=== PATIENT | male | born 1985 | race Caucasian/White ===

== ENCOUNTER → 2023-06-22 12:01 | Outpatient (REF) | payer OTHER, SELFPAY | LOC: PAVMRI 12:01 | PROVIDERS: ATTENDING PHYSICIAN Nurse Practitioner Family; FAMILY PHYSICIAN Internal Medicine | DX: M54.50 Low back pain, unspecified (principal) | CPT/HCPCS: 72148 ==

== ENCOUNTER 2024-12-11 04:38 | Emergency (ER) | payer OTHER, SELFPAY ==
[2024-12-11 04:40] VITALS: BP 158/118
--- NOTE | 2024-12-11 07:54 | ED.GENMED ---
History of Present Illness
<Daisha Garner MD, Resident - Last Filed: 12/11/24 10:15>
General
Chief Complaint: Withdrawal Symptoms
Time Seen by Provider: 12/11/24 07:54
History of Present Illness
History of Present Illness:
Patient is a 39-year-old male who presents to the emergency department with profuse sweating, stomach being in knots, nausea, and abdominal pain after running out of his opioid medications the morning prior to his presentation. He is established at
[facility] [place] under the care of Dr. Roque Posadas. The patient was recently established at that practice due to high opioid utilization and dependence. Dr. Posadas has the patient on a pain contract with a downward taper
care plan. The patient takes 30 mg of morphine and 15 mg of Oxycodone once a day and his last prescription was filled on 11/16/2024. the patient's opioid addiction began around the age of 25 when he initially hurt his back. Unfortunately, he has
been unable to kick his dependence of opioids and continues to make strides to overcome his dependence. patient states that he is to be seen at the practice this Tuesday and hopes to get help managing his symptoms until Tuesday. His stomach is in
knots and he has nausea with abdominal pain. He does not have a generalized bodyaches. He has profuse sweating throughout his body. He does not have any restlessness, goosebumps, bone aches, runny nose, or tremor. Patient denies any shortness of
breath or chest tightness. Patient is nontoxic.
Past History
<Daisha Garner MD, Resident - Last Filed: 12/11/24 10:15>
Past History
ED Past Medical History: Other (Chronic back issues) and Other ( Opioid dependence disorder)
ED Past Surgical History: Other (Bowel surgery)
Social History
Tobacco: Smoker
Alcohol: Daily
Drug: Marijuana
Personal:
Living: with family
Employment: Employed ([employer])
Review of Systems
<Daisha Garner MD, Resident - Last Filed: 12/11/24 10:15>
Review of Systems
Constitutional: Reports other ( generalized sweats)
EENT: Reports no symptoms
Respiratory: Reports no symptoms
Cardiac: Reports no symptoms
ABD/GI: Reports abdominal pain and nausea
: Reports no symptoms
Musculoskeletal: Reports no symptoms
Skin: Reports no symptoms
Neurological: Reports no symptoms
Endocrine: Reports no symptoms
Hematologic/Lymphatic: Reports no symptoms
Psychiatric: Reports no symptoms
Phy Exam
<Daisha Garner MD, Resident - Last Filed: 12/11/24 10:15>
General Physical Exam
General Presentation: well appearing
General age: appears stated age
General Skin: warm and dry
General Habitus: normal
General Mental: anxious
General Hydration: appears well hydrated
Cardiovascular Exam
Cardiovascular Exam: regular rate/rhythm, no edema, no gallop, no JVD and no murmur
Pulmonary Exam
Pulmonary Exam: lungs clear, no respiratory distress, no rales, chest non tender, no crackles, no rhonchi, no stridor, no wheezing and no cough
Musculoskeletal Exam
Musculoskeletal Exam: full ROM
Skin Exam
Skin Exam: normal color, warm/dry, no rash and no petechia
Psychiatric Exam
Psychiatric Exam: normal mood/affect and anxious
Scores
<Daisha Garner MD, Resident - Last Filed: 12/11/24 10:15>
COW Clinical Opiate Withdrawal Scale
Resting Pulse Rate: 101-120
Sweating-over past 30min not from room temp or activity: Beads of sweat on brow or face
Restlessness-observation during assessment: Able to sit still
Pupil Size: Pupils pinned or normal size for room light
Bone or Joint Aches: Not present
Runny Nose or Tearing-not accounted for by cold/allergies: Not present
GI Upset-over last 30min: Nausea or loose stool
Tremor-observation of outstretched hands: No tremor
Yawning-observation during assessment: No yawning
Anxiety or Irritability: Patient reports increasing irritability or anxiousness
Gooseflesh Skin: Skin is smooth
Score: 8
Withdrawal Severity: Mild Withdrawal, consider starting Suboxone
<Art Thao DO - Last Filed: 12/11/24 13:12>
COW Clinical Opiate Withdrawal Scale
Score: 8
Withdrawal Severity: Mild Withdrawal, consider starting Suboxone
Course
<Daisha Garner MD, Resident - Last Filed: 12/11/24 10:15>
Orders/Labs/Results
Orders:
Orders
12/11/24 08:23
Ondansetron HCl [Zofran] 4 mg PO NOW ONE
12/11/24 08:47
Nicotine [Nicoderm Transdermal] 14 mg TRANSDERM NOW ONE
12/11/24 09:26
Dicyclomine [Bentyl] 20 mg PO NOW ONE
Vital Signs
Initial and Last Documented VS:
Initial Vital Signs
Temp Pulse Resp BP Pulse Ox
97.8 F 108 22 158/118 97
12/11/24 04:40 12/11/24 04:40 12/11/24 04:40 12/11/24 04:40 12/11/24 04:40
Last Documented Vital Signs
Temp Pulse Resp BP Pulse Ox
97.8 F 108 22 158/118 97
12/11/24 04:40 12/11/24 04:40 12/11/24 04:40 12/11/24 04:40 12/11/24 08:43
<Art Thao DO - Last Filed: 12/11/24 13:12>
Orders/Labs/Results
Orders:
Orders
12/11/24 08:23
Ondansetron HCl [Zofran] 4 mg PO NOW ONE
12/11/24 08:47
Nicotine [Nicoderm Transdermal] 14 mg TRANSDERM NOW ONE
12/11/24 09:26
Dicyclomine [Bentyl] 20 mg PO NOW ONE
Vital Signs
Initial and Last Documented VS:
Initial Vital Signs
Temp Pulse Resp BP Pulse Ox
97.8 F 108 22 158/118 97
12/11/24 04:40 12/11/24 04:40 12/11/24 04:40 12/11/24 04:40 12/11/24 04:40
Last Documented Vital Signs
Temp Pulse Resp BP Pulse Ox
97.8 F 108 22 158/118 97
12/11/24 04:40 12/11/24 04:40 12/11/24 04:40 12/11/24 04:40 12/11/24 08:43
<Daisha Garner MD, Resident - Last Filed: 12/11/24 10:15>
*Pulse Oximetry
SaO2: 97
Oxygen Mode of Delivery: Room air
Patient hypoxic: no
*Critical Care Note
Total Time (30-74mins, 75-104mins- exclusive of procedures): Not Applicable
<Daisha Garner MD, Resident - Last Filed: 12/11/24 10:15>
Update Note
Update Note:
Problem List:
Nausea
GI upset
sweats
Plan:
contact outpatient pain specialist
Zofran for antiemetic
Bentyl
Differential Diagnoses:
mild opioid withdrawal
Radiology: not applicable
EKG: not applicable
Updates:
Patient given Zofran and Bentyl
Spoke to Dr. Roque Hector at [facility] [place] via phone call. They will bring the patient in to be seen later today in hopes of managing the patient's mild opioid withdrawal. they discussed that the patient will
likely have his medications refilled on the as per the 30-day refill contract that he signed to establish with the practice. initially, he was scheduled to be seen on the of this month but they will bring him in later on today for
further evaluation and to discuss possible means to get better control of his opioid dependence.
Patient to be discharged from the emergency department with immediate follow-up with pain specialist later today.
Patient would like to be discharged from the emergency department. There are no barriers that would impede the patient from being safely discharged.
ED Attending Note
<Daisha Garner MD, Resident - Last Filed: 12/11/24 10:15>
-
Portions of this chart may have been created with voice recognition software.� Occasional wrong word or��sound alike� substitutions may have occurred due to the inherent limitations of voice recognition software.
<Art Thao DO - Last Filed: 12/11/24 13:12>
ED Attending Note
Patient seen and examined by attending physician: Yes
I performed a history and physical exam of patient and discussed management with resident, I reviewed resident's note and agree with documented findings and plan of care.: Yes
ED Attending Note:
I agree with Dr. Garner's note.
Patient presents with symptoms of withdrawal because he ran out of his pain medicine at home. Patient had increased the amount of pain medicine he was taking due to a worsening of his back pain. Patient denies any bowel or bladder dysfunction.
Denies any weakness numbness or tingling in the lower extremities.
He appears mildly anxious
He has mild tremors
He is mildly tachycardic
Patient presents with withdrawal symptoms. His pain management doctor will see him in the office today to determine if he will refill his prescriptions early. From our standpoint we will give him some nonopioid analgesia and symptom relief.
Discharge Plan
Departure
Patient Disposition: Home (Routine Discharge)
Date of Disposition: 12/11/24
Time of Disposition: 09:51
Patient with high blood pressure during this ER visit?: Yes
Discharge Problem:
Opioid dependence with withdrawal
Instructions: Nausea and Vomiting, Adult (DC), Drug Misuse and Addiction (DC)
Prescriptions:
No Action
methylprednisolone [Medrol (Cayetano)] 4 MG tablets,dose pack
4 tab PO . DIRECT Qty: 1 0RF
oxycodone-acetaminophen 5 MG/325 MG tablet
1 tab PO Q4HPRN PRN (Reason: pain) Qty: 12 0RF
doxycycline hyclate 100 MG capsule
100 mg PO BID Qty: 20 0RF
cefadroxil [Duricef] 500 MG capsule
500 mg PO BID Qty: 20 0RF
hydrocodone-acetaminophen [Vicodin] 1 EACH tablet
1 ea PO Q6HPRN PRN (Reason: pain) Qty: 12 0RF
sulfamethoxazole-trimethoprim 1 TABLET tablet
1 tab PO BID Qty: 14 0RF
prednisone 50 MG tablet
50 mg PO DAILY Qty: 4 0RF
tramadol 50 MG tablet
50 mg PO Q6HPRN PRN (Reason: pain) Qty: 12 0RF
prednisone 20 MG tablet
40 mg PO DAILY Qty: 8 0RF
Referrals:
UNKNOWN - PT DOES,NOT KNOW [Family Provider]
Activity Restrictions/Additional Instructions:
Spoke to Dr. Roque Hector at [facility] [place] where the patient is currently established for pain management. They are aware of the patient's current presentation and have stated that they will bring the patient in for
an appointment and evaluation due to opioid withdrawal. Patient will be discharged from the emergency department with appointment at pain management later today. [facility] we will reach out to the patient in order to arrange
appointment today.
Interventions
Interventions:
*Risk Screen - Suicide Last Done: 12/11/24 08:33
*General Assessment Last Done: 12/11/24 08:33
*Neglect/Abuse Screening Last Done: 12/11/24 08:33
*ED- Fall Risk Assessment Last Done: 12/11/24 08:33
*ED COVID-19 Vaccine History Last Done: 12/11/24 08:33
*Nursing Disposition Last Done: 12/11/24 10:06
ED- Neurological Assessment Last Done: 12/11/24 08:36
ED-Psychological Assessment Last Done: 12/11/24 08:36
Discharge Date and Time
Discharge Date/Time: 12/11/24 10:07
Print Language: ARMENIAN
[2024-12-11] MEDS: ZOFRAN 4 MG PO (08:32)
[2024-12-11 08:33] VITALS: BMI 23.5
[2024-12-11] MEDS: NICODERM TRANSDERMAL 14 MG TRANSDERM (09:01)
[2024-12-11] MEDS: BENTYL 20 MG PO (10:03)
== END 2024-12-11 10:07 | disposition home or self-care (01) ==
LOC: EMR 04:38
PROVIDERS: EMERGENCY PHYSICIAN Emergency Medicine
DX: F11.23 Opioid dependence with withdrawal (principal); M54.9 Dorsalgia, unspecified; G89.29 Other chronic pain; F17.200 Nicotine dependence, unspecified, uncomplicated; T40.2X6A Underdosing of other opioids, initial encounter; Z91.128 Patient's intentional underdosing of medication regimen for other reason
CPT/HCPCS: 99283

== ENCOUNTER 2024-12-11 18:12 | Emergency (ER) | payer OTHER, SELFPAY ==
[2024-12-11 18:14] VITALS: BP 85/58
[2024-12-11 20:42] VITALS: BP 108/74
[2024-12-11 20:43] VITALS: BMI 25.0
[2024-12-11] MEDS: BENTYL 20 MG PO (21:43)
[2024-12-11] MEDS: ZOFRAN ODT (ORALLY DISINTEGRATING) 4 MG PO (21:43)
--- NOTE | 2024-12-11 22:44 | ED.GENMED ---
History of Present Illness
General
Chief Complaint: Withdrawal Symptoms
Source: patient and family (parents)
Time Seen by Provider: 12/11/24 20:33
History of Present Illness
History of Present Illness:
Patient to ED with complaint of withdrawal symptoms. He is currently prescribed morphine and oxycodone. Pain management is attempting to wean him off of these meds. Patient admits to taking higher doses recently because of exacerbation of his
back pain. He has since run out of his pain medication. Next refill is on Tuesday. He was seen in ED this AM. Treated with bentyl and zofran and he reports feeling better with those meds. He was discharged from ED to pain management office.
There he was given rx for flexeril and clonidine 0.1mg. He return s here tonight stating those meds do not work. To ED accompanied by parents.
Past History
Past History
ED Past Medical History: Other (Chronic back issues) and Other ( Opioid dependence disorder)
ED Past Surgical History: Other (Bowel surgery)
Social History
Tobacco: Smoker
Alcohol: Daily
Drug: Marijuana
Personal:
Living: with family
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
Review of Systems
Review of Systems
Allergies reviewed?: Yes
All Other Systems: ROS reviewed and negative except as documented in HPI and ROS
Constitutional: Reports no symptoms
EENT: Reports no symptoms
Respiratory: Reports no symptoms
Cardiac: Reports no symptoms
ABD/GI: Reports nausea
: Reports no symptoms
Musculoskeletal: Reports no symptoms
Skin: Reports no symptoms
Neurological: Reports weakness
Psychiatric: Reports no symptoms
Phy Exam
General Physical Exam
General Presentation: moderate distress
General age: appears stated age
General Skin: warm and dry
General Habitus: normal
General Mental: alert
Pulmonary Exam
Pulmonary Exam: no respiratory distress
Gastrointestinal Exam
Gastrointestinal Exam: non tender and soft
Musculoskeletal Exam
Musculoskeletal Exam: full ROM and neuro vasc intact
Skin Exam
Skin Exam: normal color and diaphoresis
Psychiatric Exam
Psychiatric Exam: normal mood/affect
Course
Orders/Labs/Results
Orders:
Orders
12/11/24 21:30
Dicyclomine [Bentyl] 20 mg PO NOW STA
Ondansetron Orally Disint [Zofran Odt (Orally Disintegrating)] 4 mg PO NOW STA
Vital Signs
Initial and Last Documented VS:
Initial Vital Signs
Temp Pulse Resp BP Pulse Ox
98.0 F 71 18 85/58 98
12/11/24 18:14 12/11/24 18:14 12/11/24 18:14 12/11/24 18:14 12/11/24 18:14
Last Documented Vital Signs
Temp Pulse Resp BP Pulse Ox
98.0 F 71 18 108/74 98
12/11/24 18:14 12/11/24 18:14 12/11/24 18:14 12/11/24 20:42 12/11/24 20:45
*Pulse Oximetry
SaO2: 98
Oxygen Mode of Delivery: Room air
Patient hypoxic: no
*Critical Care Note
Total Time (30-74mins, 75-104mins- exclusive of procedures): Not Applicable
Update Note
Update Note:
Patient to ED for medication. He was seen in ED earlier today and given bentyl and zofran for opioid withdrawal symptoms. States that was helpful to him. He was seen by pain management after his ED visit today and prescribed flexeril and
clonidine. He does not feel that these meds are helping. Given another dose of bentyl and zofran in ED with significant improvement. Will discharge home with parnet, short rx for bentyl and zofran provided. He will follow upwith pain management.
Given instructions on s/s to return to ED and he is agreeable toplan.
ED Attending Note
-
Portions of this chart may have been created with voice recognition software.� Occasional wrong word or��sound alike� substitutions may have occurred due to the inherent limitations of voice recognition software.
Discharge Plan
Departure
Patient Disposition: Home (Routine Discharge)
Date of Disposition: 12/11/24
Time of Disposition: 22:40
Patient with high blood pressure during this ER visit?: No
Condition: Good
Covid-19: Not Applicable
Discharge Problem:
Opioid dependence with withdrawal
Instructions: Opioid use disorder - ED (DC)
Prescriptions:
New
dicyclomine 20 mg tablet
20 mg PO TID PRN (Reason: abdominal pain) Qty: 12 0RF
ondansetron 4 mg tablet,disintegrating
4 mg PO TID PRN (Reason: nausea and vomiting) 4 Days Qty: 12 0RF
No Action
methylprednisolone [Medrol (Cayetano)] 4 MG tablets,dose pack
4 tab PO . DIRECT Qty: 1 0RF
oxycodone-acetaminophen 5 MG/325 MG tablet
1 tab PO Q4HPRN PRN (Reason: pain) Qty: 12 0RF
doxycycline hyclate 100 MG capsule
100 mg PO BID Qty: 20 0RF
cefadroxil [Duricef] 500 MG capsule
500 mg PO BID Qty: 20 0RF
hydrocodone-acetaminophen [Vicodin] 1 EACH tablet
1 ea PO Q6HPRN PRN (Reason: pain) Qty: 12 0RF
sulfamethoxazole-trimethoprim 1 TABLET tablet
1 tab PO BID Qty: 14 0RF
prednisone 50 MG tablet
50 mg PO DAILY Qty: 4 0RF
tramadol 50 MG tablet
50 mg PO Q6HPRN PRN (Reason: pain) Qty: 12 0RF
prednisone 20 MG tablet
40 mg PO DAILY Qty: 8 0RF
Referrals:
Janae Oliva MD [Family Provider, Internal Medicine] - Tomorrow
Activity Restrictions/Additional Instructions:
Return to the emergency department immediately for any changes in/worsening of your symptoms.
Interventions
Interventions:
*Risk Screen - Suicide Last Done: 12/11/24 20:43
*General Assessment Last Done: 12/11/24 20:43
*Neglect/Abuse Screening Last Done: 12/11/24 20:43
*ED- Fall Risk Assessment Last Done: 12/11/24 20:43
*ED COVID-19 Vaccine History Last Done: 12/11/24 20:43
ED- Neurological Assessment Last Done: 12/11/24 20:43
ED-Psychological Assessment Last Done: 12/11/24 20:43
Discharge Date and Time
Print Language: WALLISIAN
== END 2024-12-11 22:40 | disposition home or self-care (01) ==
LOC: EMR 18:12
PROVIDERS: EMERGENCY PHYSICIAN Emergency Medicine; FAMILY PHYSICIAN Internal Medicine
DX: F11.23 Opioid dependence with withdrawal (principal); F17.200 Nicotine dependence, unspecified, uncomplicated; T40.2X6A Underdosing of other opioids, initial encounter; Z91.148 Patient's other noncompliance with medication regimen for other reason
CPT/HCPCS: 99283

== ENCOUNTER → 2025-02-25 16:27 | Outpatient (REF) | payer OTHER, SELFPAY | LOC: RAD 16:27 | PROVIDERS: ATTENDING PHYSICIAN Student in an Organized Health Care Education/Training Program | DX: R20.8 Other disturbances of skin sensation (principal); G89.4 Chronic pain syndrome; M54.59 Other low back pain; M54.16 Radiculopathy, lumbar region | CPT/HCPCS: 72050; 72072; 72110 ==